=== PATIENT | female | born 1945 | race Caucasian/White ===

== ENCOUNTER → 2016-09-03 17:20 | Outpatient (CLI) | payer MEDICARE, OTHER ==
[2015-08-07 08:16] VITALS: BMI 31.1
[~2016-09-03 17:20] MED LIST: DIOVAN80 MG PO; GLIMEPIRIDE4 MG PO; GLUCOPHAGE1000 MG PO; PRILOSEC20 MG PO; SYNTHROID112 MCG PO; ZOCOR20 MG PO
== END | disposition home or self-care (01) ==
LOC: D.MAMMO 13:00
DX: Z12.31 Encounter for screening mammogram for malignant neoplasm of breast (principal)

== ENCOUNTER 2019-02-02 08:00 | Outpatient (CLI) | payer MEDICARE, OTHER ==
[2015-08-07 08:16] VITALS: BMI 31.1
== END 2019-02-02 23:59 | disposition home or self-care (01) ==
LOC: D.MAMMO 08:00
PROVIDERS: ATTEND Family Medicine
DX: Z12.31 Encounter for screening mammogram for malignant neoplasm of breast (principal)